=== PATIENT | male | born 1950 | race Caucasian/White ===

== ENCOUNTER 2018-04-01 13:20 | Emergency (ER) | payer BC ==
[~2018-04-01] VITALS: Ht 172.7 cm; Wt 94.1 kg
[2018-04-01 13:23] VITALS: TEMP 98
[2018-04-01 14:20] LABS: HEMATOCRIT 39.5 % (42.0-52.0); HEMOGLOBIN 13.1 g/dl (13.5-18.0); MEAN CELL VOLUME 90 fl (80.0-100.0); MEAN CORPUSCULAR HEMOGLOBIN 30 pg (27.0-31.0); MEAN CORPUSCULAR HGB CONC 33 g/dl (33.0-37.0); MEAN PLATELET VOLUME 8.5 fl (7.4-10.4); PLATELET COUNT 196 K/mm3 (130-400); RED BLOOD COUNT 4.38 M/mm3 (4.20-5.60); REDCELL DISTRIBUTION WIDTH-CV 13.2 % (11.5-14.5)
[2018-04-01 14:26] LABS: INR 0.9 (0.8-3.0)
[2018-04-01 14:42] LABS: ALBUMIN 3.6 gm/dL (3.5-5.0); BILIRUBIN,TOTAL 0.5 mg/dL (0.0-1.0); CREATININE, serum 1.45 mg/dL (0.66-1.25); TOTAL PROTEIN 6.5 gm/dL (6.4-8.2)
[2018-04-01 14:45] LABS: BAND 11 % (0-10); EOSINOPHIL 3 % (0-4); LYMPHOCYTE 18 % (20.0-51.0); NEUTROPHILS 68 % (42.0-75.2); PLATELET ESTIMATE NORMAL (NORMAL)
[2018-04-01 14:54] LABS: TROPONIN-I 0.023 ng/mL (0.000-0.034)
[2018-04-01] MEDS ORDERED: MICRO-K 10 EXT10 MEQ PO ×2 (16:22→16:37)
[2018-04-01] MEDS ORDERED: LASIX 20MG TABL20 MG PO ×2 (16:22→16:37)
[2018-04-01] MEDS ORDERED: BASAGLAR K100 UNIT/1 SQ (16:40)
[2018-04-01] MEDS ORDERED: CLARITIN 1010 MG/TAB PO (16:40)
[2018-04-01] MEDS ORDERED: HUMALOG100 U/ML SQ (16:40)
[2018-04-01] MEDS ORDERED: ASPIRIN 81M81 MG/TA2 PO (16:41)
[2018-04-01] MEDS ORDERED: NORVASC 10MG10 MG PO (16:41)
[2018-04-01] MEDS ORDERED: LIPITOR 80MG80 MG PO (16:41)
[2018-04-01] MEDS ORDERED: CATAPRES 0.1MG0.1 MG PO (16:41)
[2018-04-01 17:18] VITALS: BP 172/102; PULSE 93
== END 2018-04-01 17:20 | disposition home or self-care (01) ==
LOC: COL.ER 13:20
PROVIDERS: Emergency Medicine
DX: I50.9 Heart failure, unspecified (principal); R60.0 Localized edema; E11.9 Type 2 diabetes mellitus without complications; I10 Essential (primary) hypertension; I25.10 Atherosclerotic heart disease of native coronary artery without angina pectoris; Z90.49 Acquired absence of other specified parts of digestive tract; Z88.0 Allergy status to penicillin; Z98.890 Other specified postprocedural states; J45.909 Unspecified asthma, uncomplicated; Z85.46 Personal history of malignant neoplasm of prostate; Z79.4 Long term (current) use of insulin; Z79.82 Long term (current) use of aspirin
CPT/HCPCS: J1940

== ENCOUNTER 2018-04-02 22:48 | Emergency (ER) | payer BC ==
[~2018-04-02] VITALS: Ht 172.7 cm; Wt 98.8 kg
[~2018-04-02 22:48] MED LIST: ASPIRIN 81M81 MG/TA2 PO; BASAGLAR K100 UNIT/1 SQ; CATAPRES 0.1MG0.1 MG PO; CLARITIN 1010 MG/TAB PO; HUMALOG100 U/ML SQ; LASIX 20MG TABL20 MG PO; LIPITOR 80MG80 MG PO; MICRO-K 10 EXT10 MEQ PO; NORVASC 10MG10 MG PO
[2018-04-02 22:50] VITALS: TEMP 98
[2018-04-02 23:40] LABS: HEMATOCRIT 38.4 % (42.0-52.0); HEMOGLOBIN 13.2 g/dl (13.5-18.0); MEAN CELL VOLUME 88 fl (80.0-100.0); MEAN CORPUSCULAR HEMOGLOBIN 30 pg (27.0-31.0); MEAN CORPUSCULAR HGB CONC 34 g/dl (33.0-37.0); MEAN PLATELET VOLUME 8.4 fl (7.4-10.4); PLATELET COUNT 202 K/mm3 (130-400); RED BLOOD COUNT 4.38 M/mm3 (4.20-5.60); REDCELL DISTRIBUTION WIDTH-CV 13.2 % (11.5-14.5)
[2018-04-02 23:50] LABS: ALBUMIN 3.5 gm/dL (3.5-5.0); BILIRUBIN,TOTAL 0.3 mg/dL (0.0-1.0); CALCIUM 9.1 mg/dL (8.4-10.2); CREATININE, serum 1.87 mg/dL (0.66-1.25); MAGNESIUM 1.6 mg/dL (1.6-2.3); PHOSPHOROUS 5.2 mg/dL (2.5-4.5); POTASSIUM 3.8 mmol/L (3.4-5.0); TOTAL PROTEIN 6.4 gm/dL (6.4-8.2)
[2018-04-03 00:01] LABS: TROPONIN-I 0.021 ng/mL (0.000-0.034)
[2018-04-03 00:07] LABS: BAND 5 % (0-10); EOSINOPHIL 3 % (0-4); LYMPHOCYTE 22 % (20.0-51.0); NEUTROPHILS 64 % (42.0-75.2); PLATELET ESTIMATE NORMAL (NORMAL)
[2018-04-03 00:15] LABS: COLLECTION METHOD CLEAN CATCH
[2018-04-03 00:20] LABS: PH 5 (5-8); SQUAMOUS EPITHELIAL None Seen /hpf; URINE APPEARANCE Clear; URINE BACTERIA None Seen /hpf; URINE BILIRUBIN Negative (NEGATIVE); URINE BLOOD 1+ (NEGATIVE); URINE COLOR Yellow; URINE GLUCOSE 1+ (NEGATIVE); URINE KETONE Negative (NEGATIVE); URINE LEUKOCYTE ESTERASE Negative (NEGATIVE); URINE NITRATE Negative (NEGATIVE); URINE PROTEIN(semi-quant) 3+ (NEGATIVE); URINE RBC 0-2 /hpf; URINE UROBILINOGEN Negative (NEGATIVE)
[2018-04-03] MEDS ORDERED: CEFTIN500 MG PO (01:51)
[2018-04-03] MEDS ORDERED: compression stocking (01:52)
[2018-04-03 02:10] VITALS: BP 161/95; PULSE 98
[2018-04-03 07:39] LABS: URINE PROTEIN:CREAT RATIO 7.11 (0.00-0.14)
== END 2018-04-03 02:14 | disposition home or self-care (01) ==
LOC: COL.ER 22:48
PROVIDERS: Emergency Medicine
DX: R60.0 Localized edema (principal); L03.90 Cellulitis, unspecified; I12.9 Hypertensive chronic kidney disease with stage 1 through stage 4 chronic kidney disease, or unspecified chronic kidney disease; E11.22 Type 2 diabetes mellitus with diabetic chronic kidney disease; N18.9 Chronic kidney disease, unspecified; E78.5 Hyperlipidemia, unspecified; I25.10 Atherosclerotic heart disease of native coronary artery without angina pectoris; J45.909 Unspecified asthma, uncomplicated; Z85.46 Personal history of malignant neoplasm of prostate; Z95.1 Presence of aortocoronary bypass graft; Z79.4 Long term (current) use of insulin; Z79.82 Long term (current) use of aspirin
CPT/HCPCS: J1940